=== PATIENT | female | born 1945 | race Caucasian/White ===

== ENCOUNTER 2022-12-29 09:17 | Outpatient (RCR) | payer MEDICARE, SELFPAY | END 2023-03-28 16:00 | disposition home or self-care (01) | LOC: HO.WCC 09:17 | PROVIDERS: PCP Family Medicine; Referring Provider Nurse Practitioner Family; Visit Provider Physician Assistant | DX: E11.621 Type 2 diabetes mellitus with foot ulcer (principal); L89.613 Pressure ulcer of right heel, stage 3; E11.51 Type 2 diabetes mellitus with diabetic peripheral angiopathy without gangrene; Z79.891 Long term (current) use of opiate analgesic; Z79.82 Long term (current) use of aspirin; Z79.899 Other long term (current) drug therapy | CPT/HCPCS: 11042; 15275; 97597; 99212; Q4187 ==